=== PATIENT | male | born 1990 | race Hispanic/Latino ===

== ENCOUNTER 2019-07-01 13:49 | Emergency (ER) | payer SELFPAY ==
[2019-07-01] MEDS ORDERED: HYDROcodone/Acetaminophen 10/325 mg Tablet ONE (14:15)
[2019-07-01 14:37] LABS: #Lymphocytes 1.6 thou/uL (1.20-3.40); #Neutrophils 11.1 thou/uL (1.40-6.50); %Basophils 0.2 % (0.0-1.0); %Eosinophils 0.2 % (0.0-10.0); %Lymphocytes 11.4 % (21.0-51.0); %Monocytes 6.9 % (0.0-10.0); %Neutrophils 81.3 % (42.0-75.0); Hemoglobin 15.7 g/dL (14.0-18.0); Mean Corpuscular HGB CONC 34.9 g/dL (32.0-36.0); Mean Corpuscular Hemoglobin 33.4 pg (27.0-31.0); Mean Corpuscular Volume 95.7 fL (78.0-98.0); Mean Platelet Volume 6.9 fL (7.4-10.4); Platelet Count 301 thou/uL (130-400); RBC Distribution Width 12.2 % (11.5-14.5); White Blood Cell (WBC) Count 13.7 thou/uL (4.8-10.8)
[2019-07-01 14:57] LABS: ALT (SGPT) 18 U/L (8-55); AST (SGOT) 17 U/L (5-34); Albumin 4.4 g/dL (3.5-5.0); Alkaline Phosphatase 100 U/L (40-150); Anion Gap 11 mmol/L (10-20); BUN (Urea Nitrogen) 12 mg/dL (8.9-20.6); Bilirubin, Total 1.6 mg/dL (0.2-1.2); Calc. Creatinine Clearance 0 mL/min (70-130); Calcium 9.6 mg/dL (7.8-10.44); Carbon Dioxide 28 mmol/L (22-29); Chloride 102 mmol/L (98-107); Estimated GFR-MDRD 90; Globulin 3.3 g/dL (2.4-3.5); Glucose 109 mg/dL (70-105); Potassium 3.7 mmol/L (3.5-5.1); Protein, Total 7.7 g/dL (6.0-8.3); Sodium 137 mmol/L (136-145)
--- NOTE | 2019-07-01 16:16 | ULT ---
RIGHT LOWER EXTREMITY VENOUS DUPLEX EXAM: 07/01/19 INDICATION: Right lower extremity pain and edema. Veins of the right lower extremity evaluated with ultrasound and Doppler. Color Doppler with spectral analysis and compression studies performed. Deep veins show normal blood flow and compression. No evidence of DVT. IMPRESSION: No evidence of right lower extremity DVT. POS: OFF
== END 2019-07-01 16:48 | disposition home or self-care (01) ==
LOC: EDBD 13:49 → ERS 13:49
DX: L03.115 Cellulitis of right lower limb (principal)
CPT/HCPCS: 36415; 80053; 85025